=== PATIENT | male | born 1990 | race Caucasian/White ===

== ENCOUNTER 2018-06-08 17:06 | Emergency (ER) | payer SELFPAY ==
[~2018-06-08] VITALS: Ht 185.4 cm; Wt 77.3 kg
[2018-06-08 17:14] VITALS: Ht 185.4 cm; Wt 77.3 kg
[2018-06-08] MEDS ORDERED: TORADOL10 MG PO (19:29)
[2018-06-08 20:32] VITALS: BP 146/83
== END 2018-06-08 20:36 | disposition home or self-care (01) ==
LOC: D.ER 17:06
DX: S43.101A Unspecified dislocation of right acromioclavicular joint, initial encounter (principal); Y04.2XXA Assault by strike against or bumped into by another person, initial encounter; Y93.89 Activity, other specified; Y92.89 Other specified places as the place of occurrence of the external cause; R51 Headache; M54.2 Cervicalgia; F17.200 Nicotine dependence, unspecified, uncomplicated